=== PATIENT | female | born 1940 | race Asian ===

== ENCOUNTER 2016-05-03 06:23 | Outpatient (CLI) | payer OTHER ==
[2016-05-03 06:39] LABS: PLATELET COUNT 238 K/uL (152-353)
[2016-05-03 07:09] LABS: POTASSIUM 3.9 mmol/L (3.6-5.2); SODIUM 136 mmol/L (136-145)
== END 2016-05-03 18:56 | disposition home or self-care (01) ==
LOC: LABW 06:23
PROVIDERS: Nurse Practitioner
DX: I10 Essential (primary) hypertension (principal); D69.6 Thrombocytopenia, unspecified; E78.00 Pure hypercholesterolemia, unspecified; E55.9 Vitamin D deficiency, unspecified; R53.83 Other fatigue; D64.9 Anemia, unspecified
CPT/HCPCS: 36415; 80053; 80061; 82306; 83540; 84443; 85027

== ENCOUNTER 2016-11-04 14:54 | Emergency (ER) | payer OTHER ==
[~2016-11-04] VITALS: Ht 160 cm; Wt 78.0 kg
[2016-11-04 15:48] LABS: PLATELET COUNT 241 K/uL (152-353)
[2016-11-04 15:53] LABS: POTASSIUM 4.3 mmol/L (3.6-5.2); SODIUM 135 mmol/L (136-145)
[2016-11-04 16:30] VITALS: BP 114/58; TEMP 98.4
== END 2016-11-04 16:46 | disposition home or self-care (01) ==
LOC: ED 14:54
DX: R51 Headache (principal); I10 Essential (primary) hypertension
CPT/HCPCS: 36415; 80053; 81000; 84484; 85027; 93005; 96374; 99284; J3490

== ENCOUNTER 2016-11-06 08:49 | Outpatient (CLI) | payer OTHER | END 2016-11-06 10:16 | disposition home or self-care (01) | LOC: MAMMO 08:49 | DX: Z12.31 Encounter for screening mammogram for malignant neoplasm of breast (principal) | CPT/HCPCS: G0202-TC ==

== ENCOUNTER 2017-12-03 10:24 | Outpatient (CLI) | payer OTHER | END 2017-12-03 23:29 | disposition home or self-care (01) | LOC: MAMMO 10:24 | DX: Z12.31 Encounter for screening mammogram for malignant neoplasm of breast (principal) ==

== ENCOUNTER 2018-02-11 17:55 | Emergency (ER) | payer OTHER ==
[~2018-02-11] VITALS: Ht 160 cm; Wt 77.1 kg
[2018-02-11] MEDS ORDERED: AMLODIPINE BESYLATE PO (18:23)
[2018-02-11] MEDS ORDERED: CLON0.1T16 PO (18:23)
[2018-02-11] MEDS ORDERED: LOSA50TA PO (18:24)
[2018-02-11] MEDS ORDERED: GABA400C2 PO (18:25)
[2018-02-11] MEDS ORDERED: SIMV20TA2 PO (18:25)
[2018-02-11] MEDS ORDERED: FERROUS SULF325 M1 PO (18:27)
[2018-02-11] MEDS ORDERED: XYZAL ALLERGY 245 MG PO (18:27)
[2018-02-11] MEDS ORDERED: ALLERGY RE50 MCG/ACT INH (18:29)
[2018-02-11 20:55] VITALS: BP 149/73; TEMP 98.5
== END 2018-02-11 20:55 | disposition home or self-care (01) ==
LOC: ED 17:55
DX: I10 Essential (primary) hypertension (principal)
CPT/HCPCS: 99282

== ENCOUNTER 2018-08-28 08:39 | Outpatient (CLI) | payer OTHER ==
[~2018-08-28 08:39] MED LIST: ALLERGY RE50 MCG/ACT INH; AMLODIPINE BESYLATE PO; CLON0.1T16 PO; FERROUS SULF325 M1 PO; GABA400C2 PO; LOSA50TA PO; SIMV20TA2 PO; XYZAL ALLERGY 245 MG PO
[2018-08-28 09:32] LABS: POTASSIUM 4.8 mmol/L (3.6-5.2)
== END 2018-08-28 23:32 | disposition home or self-care (01) ==
LOC: LABW 08:39
PROVIDERS: Nurse Practitioner
DX: R53.82 Chronic fatigue, unspecified (principal); E53.8 Deficiency of other specified B group vitamins
CPT/HCPCS: 36415; 80048; 82607

== ENCOUNTER 2019-04-07 11:22 | Outpatient (CLI) | payer OTHER | END 2019-04-07 19:34 | disposition home or self-care (01) | LOC: MAMMO 11:22 | DX: Z12.31 Encounter for screening mammogram for malignant neoplasm of breast (principal) ==

== ENCOUNTER 2020-04-12 09:56 | Outpatient (CLI) | payer OTHER | END 2020-04-12 19:17 | disposition home or self-care (01) | LOC: MAMMO 09:56 | PROVIDERS: ATTEND Nurse Practitioner Family | DX: Z12.31 Encounter for screening mammogram for malignant neoplasm of breast (principal) ==

== ENCOUNTER 2021-12-01 09:57 | Outpatient (CLI) | payer OTHER | END 2021-12-01 19:12 | disposition home or self-care (01) | LOC: MAMMO 09:57 | PROVIDERS: ATTEND Nurse Practitioner Family | DX: Z12.31 Encounter for screening mammogram for malignant neoplasm of breast (principal) ==